=== PATIENT | female | born 1935 | race Caucasian/White ===

== ENCOUNTER 2020-09-02 07:48 | Inpatient (IN) | payer OTHER, BC ==
[2020-08-26 09:58] VITALS: BMI 19.5
[2020-09-02] MEDS ORDERED: TRANEXAMIC ACID 1000 MG/10 ML VIAL IVPUSH ONE (08:28)
[2020-09-02] MEDS ORDERED: CEFAZOLIN 2 GM in DEXTROSE 5%-WATER - 50 ML IVPB ONE (08:28)
[2020-09-02] MEDS ORDERED: CELECOXIB 200 MG CAPSULE PO ONE (08:28)
[2020-09-02] MEDS ORDERED: BUPIVACAINE LIPOSOME/PF (EXPAREL) 266 MG/20 ML VIAL ONE (10:19)
[2020-09-02] MEDS ORDERED: MIDAZOLAM HCL 2 MG/2 ML SINGLE DOSE VIAL ONE (10:19)
[2020-09-02] MEDS ORDERED: SODIUM CHLORIDE 0.9% P/F 10 ML VIAL IJ ONE (10:19)
[2020-09-02] MEDS ORDERED: BUPIVACAINE HCL/PF 0.5% (5MG/ML) 10 ML VIAL ONE (11:13)
[2020-09-02] MEDS ORDERED: PROPOFOL 20 ML ONE (11:29)
[2020-09-02] MEDS ORDERED: EPHEDRINE SULFATE/0.9% NACL/PF 50 MG/10 ML SYRINGE NR ONE (11:51)
[2020-09-02] MEDS ORDERED: VANCOMYCIN 1,000 MG VIAL (RESTRICTED TO ID ONLY) ONE (11:53)
[2020-09-02] MEDS ORDERED: ceFAZolin SODIUM 1 GM VIAL ONE (11:53)
[2020-09-02] MEDS ORDERED: VANCOMYCIN 1,000 MG VIAL (RESTRICTED TO ID ONLY) IVPB ONE (13:07)
[2020-09-02] MEDS ORDERED: MAG HYDROX/AL HYDROX/SIMETH 30 ML UNIT-DOSE CUP PO PRN (13:33)
[2020-09-02] MEDS ORDERED: MAGNESIUM HYDROX 2400MG/30ML ORAL SUSPENSION 30 ML CUP PO PRN (13:33)
[2020-09-02] MEDS ORDERED: ONDANSETRON 4 MG/2 ML VIAL IVPUSH PRN ×2 (13:33→14:00)
[2020-09-02] MEDS ORDERED: LACTATED RINGERS SOLUTION 1,000 ML IV SCH ×2 (13:45→14:00)
[2020-09-02] MEDS ORDERED: oxyCODONE HCL 5 MG TABLET ONE (14:55)
[2020-09-02] MEDS: oxyCODONE HCL 5 MG TABLET PO PRN ×2 (15:00→21:58)
[2020-09-02] MEDS: CEFAZOLIN 2 GM/D5W 2 GM/50 ML ML IVPB SCH (20:15)
[2020-09-02] MEDS: SENNOSIDES/DOCUSATE COMBO (SENNA PLUS) TABLET (UD) PO SCH (21:58)
[2020-09-03] MEDS: CEFAZOLIN 2 GM/D5W 2 GM/50 ML ML IVPB SCH (03:24)
[2020-09-03 07:56] LABS: HEMATOCRIT 32.5 % (32.4-45.2); MCHC 33.8 g/dl (32.0-36.0); MEAN CELL VOLUME 88.8 fl (80-96); MEAN PLT VOLUME 7.4 fl (7.5-11.1); PLATELET COUNT 381 K/MM3 (134-434); RBC 3.66 M/mm3 (3.60-5.2); RDW 12.4 % (11.6-15.6); WHITE BLOOD COUNT 13.7 K/mm3 (4.0-10.8)
[2020-09-03] MEDS: PANTOPRAZOLE 40 MG TABLET PO SCH (09:24)
[2020-09-03] MEDS: ASPIRIN 325 MG TABLET PO SCH (09:24)
[2020-09-03] MEDS: SENNOSIDES/DOCUSATE COMBO (SENNA PLUS) TABLET (UD) PO SCH ×2 (09:24→21:18)
[2020-09-03] MEDS: oxyCODONE HCL 5 MG TABLET PO PRN (09:25)
[2020-09-03] MEDS: MULTIVITAMINS (DAILY MVI) TABLET (FP) PO SCH (09:25)
[2020-09-03] MEDS ORDERED: COLESTIPOL HCL 1 GM PO SCH (10:00)
[2020-09-04] MEDS: oxyCODONE HCL 5 MG TABLET PO PRN (04:57)
[2020-09-04 07:58] LABS: HEMATOCRIT 31.4 % (32.4-45.2); HEMOGLOBIN 10.4 GM/dl (10.7-15.3); MCH 29.6 pg (25.7-33.7); MEAN CELL VOLUME 89.7 fl (80-96); MEAN PLT VOLUME 7.7 fl (7.5-11.1); PLATELET COUNT 325 K/MM3 (134-434); RBC 3.51 M/mm3 (3.60-5.2); RDW 12.6 % (11.6-15.6); WHITE BLOOD COUNT 15.5 K/mm3 (4.0-10.8)
[2020-09-04] MEDS: PANTOPRAZOLE 40 MG TABLET PO SCH (09:24)
[2020-09-04] MEDS: ASPIRIN 325 MG TABLET PO SCH (09:24)
[2020-09-04] MEDS: MULTIVITAMINS (DAILY MVI) TABLET (FP) PO SCH (09:25)
[2020-09-04] MEDS: SENNOSIDES/DOCUSATE COMBO (SENNA PLUS) TABLET (UD) PO SCH (09:25)
[2020-09-04 14:17] VITALS: BP 120/60; PULSE 98; TEMP 98.6
== END 2020-09-04 14:19 | disposition home health service (06) | DRG 470 ==
LOC: FM/S 07:48
PROVIDERS: ADMIT Orthopaedic Surgery; ATTEND Orthopaedic Surgery
PROC: 0SRC0J9 Replacement of Right Knee Joint with Synthetic Substitute, Cemented, Open Approach (ICD-10-PCS; principal; 2020-09-02 12:02)
DX: M17.11 Unilateral primary osteoarthritis, right knee (principal); I10 Essential (primary) hypertension; F41.9 Anxiety disorder, unspecified; R41.0 Disorientation, unspecified; D72.829 Elevated white blood cell count, unspecified
CPT/HCPCS: 36415; 73560-TC-RT-FY; 85027; 88304-TC; 88311-TC; 94760; 97010-GP; 97116-GP; 97163-GP